=== PATIENT | female | born 1985 | race Caucasian/White ===

== ENCOUNTER 2017-03-26 16:22 | Emergency (ER) | payer OTHER ==
--- NOTE | 2017-03-26 18:41 | RAD ---
Indication: Headaches. CT of the brain was performed without IV contrast. Ventricular structures are midline. No midline shift is noted. The extra-axial spaces are unremarkable. There is no evidence of intracranial mass or hemorrhage. No other high or low density lesions are identified. Mastoid air cells and paranasal sinuses are otherwise unremarkable. IMPRESSION: No intracranial mass or hemorrhage is noted.
[2017-03-26] MEDS ORDERED: HYDROcodone/ACETAMIN 5-325 MG* 1 TAB PO ONE (19:31)
[2017-03-26] MEDS ORDERED: Lisinopril TAB* 10 MG PO ONE (19:32)
[2017-03-26 19:50] VITALS: BP 141/88
--- NOTE | 2017-03-26 21:03 | ED ---
Zuleyka Junior Rebecca, scribed for Nae Higgins MD on 03/26/17 at 1924 . Headache - HPI Summary HPI Summary: Pt is a 31 y/o F accompanied by a guest who presents to ED c/o POPE. Sx began 3 days ago and have been constant since onset. Pain is in the occipital and temporal regions and is currently moderate, ranked 6/10 and characterized as pressure. Sx aggravated and alleviated by nothing, unchanged by Ibuprofen (600 mg). Additionally c/o vision changes of the R eye, stating that she "can see straight" and is unable to describe the sensation beyond that. Denies N/V, vision loss and photophobia. Pt reports she has been experiencing similar episodes intermittently recently and expects to suffer from migraines, though she has never been diagnosed. Pt confirms that she has a PCP in [facility] near [place], though she is in the area visiting family and is unsure when she will be returning to be near her PCP. Guest confirms that he can drive home from the ED. - History Of Current Complaint Chief Complaint: EDHeadache Stated Complaint: HEAD PRESSURE Time Seen by Provider: 03/26/17 19:10 Hx Obtained From: Patient Hx Last Menstrual Period: 3 weeks Onset/Duration: Started days ago - 2 days, Still Present Currently Pain Is: Current Pain Scale(0-10)= - 6/10, Moderate Timing: Constant Character: Pressure Location of Headache: Temporal, Occipital Radiates to: no radiation Aggravating Factor: Nothing Allevating Factors: Nothing Associated Signs And Symptoms: Visual Changes - R eye Related History: Similar Episode/DX As: - Recent intermittent similar episodes - Allergies/Home Medications Allergies/Adverse Reactions: Allergies Allergy/AdvReac Type Severity Reaction Status Date / Time Promethazine [From Phenergan] Allergy Swelling Verified 08/21/15 16:43 Of Face,Lips,& Throat Valproic Acid [From Depakote] Allergy Hives Verified 08/21/15 16:43 PMH/Surg Hx/FS Hx/Imm Hx Previously Healthy: No Endocrine/Hematology History: Reports: Hx Diabetes - Borderline, Hx Thyroid Disease - "I don't take meds for it", Other Endocrine/Hematological Disorders - OVARIAN CYST - TOTAL HYSTERECTOMY Neurological History: Reports: Hx Developmental Delay Psychiatric History: Reports: Hx Depression, Hx Inpatient Treatment Denies: Hx Eating Disorder - Surgical History Surgery Procedure, Year, and Place: TOTAL HYSTERECTOMY. CHOLECYSTECTOMY Hx Anesthesia Reactions: No Infectious Disease History: No Infectious Disease History: Denies: Traveled Outside the [place] in Last 30 Days - Family History Known Family History: Positive: Diabetes - Social History Lives: With Family Alcohol Use: None Substance Use Type: Reports: None Hx Tobacco Use: No Smoking Status (MU): Unknown if Ever Smoked Review of Systems Constitutional: Negative Positive: Other - R eye visual changes unable to describe further ; NEGATIVE: visual loss. Negative: Photophobia ENT: Negative Cardiovascular: Negative Respiratory: Negative Negative: Vomiting, Nausea Positive: Headache Psychological: Normal All Other Systems Reviewed And Are Negative: Yes Physical Exam Triage Information Reviewed: Yes Vital Signs On Initial Exam: Initial Vitals Temp Pulse Resp BP Pulse Ox 98.1 F 81 20 155/93 97 03/26/17 16:52 03/26/17 16:52 03/26/17 16:52 03/26/17 16:52 03/26/17 16:52 Vital Signs Reviewed: Yes Appearance: Positive: Well-Appearing, No Pain Distress, Obese Skin: Positive: Warm, Skin Color Reflects Adequate Perfusion Head/Face: Positive: Normal Head/Face Inspection Eyes: Positive: EOMI, YULIET, Conjunctiva Clear ENT: Positive: Normal ENT inspection, Pharynx normal, TMs normal Neck: Positive: Supple, Nontender, No Lymphadenopathy, Other: - No bruit Respiratory/Lung Sounds: Positive: Clear to Auscultation, Breath Sounds Present , Other - No respiratory distress Cardiovascular: Positive: RRR, Pulses are Symmetrical in both Upper and Lower Extremities, Other - Brisk capillary refill, S1, S2. Negative: Murmur Abdomen Description: Positive: Nontender, No Organomegaly, Soft. Negative: Distended, Guarding Musculoskeletal: Positive: Strength/ROM Intact. Negative: Edema Left, Edema Right Neurological: Positive: Sensory/Motor Intact, Alert, Oriented to Person Place, Time, CN Intact II-III, Normal Gait, Facial Symmetry, Speech Normal Psychiatric: Positive: Normal Diagnostics - Vital Signs Vital Signs Temp Pulse Resp BP Pulse Ox 03/26/17 18:31 98.4 F 89 20 148/85 98 03/26/17 16:52 98.1 F 81 20 155/93 97 - Laboratory Lab Statement: Any lab studies that have been ordered have been reviewed, and results considered in the medical decision making process. - CT Brain CT CT Interpretation: No Acute Changes - No intracranial mass or hemorrhage is noted. ED physician reviewed radiology report and agrees. CT Interpretation Completed By: Radiologist Headache Course/Dx - Course Assessment/Plan: Pt is a 31 y/o F accompanied by a guest who presents to ED c/o occipital and temporal POPE, beginning 3 days ago that has been constant since onset. Pain is currently moderate, ranked 6/10 and characterized as pressure. Sx unchanged by Ibuprofen (600 mg). Additionally c/o vision changes of the R eye , stating that she "can see straight" and is unable to describe the sensation beyond that. Denies N/V, vision loss and photophobia. Pt reports she has been experiencing similar episodes intermittently recently and expects to suffer from migraines, though she has never been diagnosed. Pt confirms that she has a PCP in [facility], though she is in the area visiting family and is unsure when she will be returning to be near her PCP. Guest confirms that he can drive home from the ED. Brain CT reveals no acute findings. In the ED course , pt was given [place] 5-325 and Prinivil. Pt will be D/C to home with Dx of POPE, HTN and Elevated BP without diagnosis of HTN with Rx for [place] 5-325 and Prinivil. She understands and agrees. Pt medications reviewed this visit. Allergies noted. Elevated BP noted. - Diagnoses Provider Diagnoses: Elevated BP without diagnosis of hypertension, HTN (hypertension), Headache Discharge - Discharge Plan Condition: Stable Disposition: HOME Prescriptions: HYDROcodone/ACETAMIN 5-325 MG* [[place] 5-325 TAB*] 1 tab PO Q8H PRN #3 tab MDD 3 PRN Reason: Pain Lisinopril TAB* [Prinivil TAB 10 MG*] 10 mg PO DAILY #14 tab Patient Education Materials: DASH Eating Plan (ED), Hypertension (ED), Acute Headache (ED) Referrals: Non Staff,Doctor [Primary Care Provider] - (Upon returning home. ) Additional Instructions: You were given one dose of hydrocodone/acetaminophen 5/325 for pain. You were started on Lisinopril 10mg daily for hypertension. Have definite follow up with your doctor KIKO, within one week. Return to ED for any new or worsening symptoms. The documentation as recorded by the Zuleyka sampson Rebecca accurately reflects the service I personally performed and the decisions made by , Nae Higgins MD.
== END 2017-03-26 19:49 | disposition home or self-care (01) ==
LOC: ED 16:22
DX: I10 Essential (primary) hypertension (principal); R51 Headache
CPT/HCPCS: 70450; 99282; A9270-GY